=== PATIENT | male | born 1955 | race Caucasian/White ===

== ENCOUNTER 2023-08-17 09:24 | Outpatient (RCR) | payer MEDICARE, SELFPAY | END 2023-08-17 23:59 | disposition home or self-care (01) | LOC: RPT 09:24 | PROVIDERS: ATTENDING PHYSICIAN Neurological Surgery; FAMILY PHYSICIAN Family Medicine | DX: M48.062 Spinal stenosis, lumbar region with neurogenic claudication (principal); M54.50 Low back pain, unspecified; Z73.6 Limitation of activities due to disability | CPT/HCPCS: 97110; 97163 ==

== ENCOUNTER 2023-09-05 11:54 | Outpatient (RCR) | payer MEDICARE, SELFPAY | END 2023-09-05 23:59 | disposition home or self-care (01) | LOC: RPT 11:54 | PROVIDERS: ATTENDING PHYSICIAN Neurological Surgery; FAMILY PHYSICIAN Family Medicine | DX: M48.062 Spinal stenosis, lumbar region with neurogenic claudication (principal); M54.50 Low back pain, unspecified; Z73.6 Limitation of activities due to disability | CPT/HCPCS: 97010; 97110; 97140; 97530 ==

== ENCOUNTER → 2023-09-07 11:01 | Outpatient (REF) | payer MEDICARE, SELFPAY | LOC: RAD 11:01 | PROVIDERS: ATTENDING PHYSICIAN Neurological Surgery; FAMILY PHYSICIAN Family Medicine | DX: M48.062 Spinal stenosis, lumbar region with neurogenic claudication (principal) | CPT/HCPCS: 72100 ==

== ENCOUNTER → 2023-09-27 12:21 | Outpatient (REF) | payer MEDICARE, SELFPAY | LOC: PAVMRI 12:21 | PROVIDERS: ATTENDING PHYSICIAN Neurological Surgery; FAMILY PHYSICIAN Family Medicine | DX: M48.062 Spinal stenosis, lumbar region with neurogenic claudication (principal) | CPT/HCPCS: 72158; A9575 ==

== ENCOUNTER 2023-10-03 14:28 | Outpatient (RCR) | payer MEDICARE, SELFPAY | END 2023-10-03 23:59 | disposition home or self-care (01) | LOC: RPT 14:28 | PROVIDERS: ATTENDING PHYSICIAN Neurological Surgery; FAMILY PHYSICIAN Family Medicine | DX: M48.062 Spinal stenosis, lumbar region with neurogenic claudication (principal); M54.50 Low back pain, unspecified; Z73.6 Limitation of activities due to disability | CPT/HCPCS: 97110 ==

== ENCOUNTER → 2023-10-23 07:32 | Outpatient (REF) | payer MEDICARE, SELFPAY | LOC: EMG 07:32 | PROVIDERS: ATTENDING PHYSICIAN Neurological Surgery; FAMILY PHYSICIAN Family Medicine | DX: G90.09 Other idiopathic peripheral autonomic neuropathy (principal); M54.16 Radiculopathy, lumbar region; R20.0 Anesthesia of skin | CPT/HCPCS: 95886; 95911 ==

== ENCOUNTER → 2023-11-06 12:40 | Outpatient (REF) | payer MEDICARE, SELFPAY | LOC: HWRAD 12:40 | PROVIDERS: ATTENDING PHYSICIAN Family Medicine | DX: I25.10 Atherosclerotic heart disease of native coronary artery without angina pectoris (principal); I25.84 Coronary atherosclerosis due to calcified coronary lesion; Z87.891 Personal history of nicotine dependence; Z13.6 Encounter for screening for cardiovascular disorders | CPT/HCPCS: 75571; 76770 ==

== ENCOUNTER → 2024-09-19 10:52 | Outpatient (REF) | payer MEDICARE, SELFPAY | LOC: HWRCS 10:52 | PROVIDERS: ATTENDING PHYSICIAN Internal Medicine Cardiovascular Disease; FAMILY PHYSICIAN Family Medicine | DX: Z86.79 Personal history of other diseases of the circulatory system (principal); E78.00 Pure hypercholesterolemia, unspecified; R06.02 Shortness of breath | CPT/HCPCS: 78452; 93017; A9500; J2785 ==

== ENCOUNTER 2025-01-01 12:43 | Emergency (ER) | payer MEDICARE, SELFPAY ==
[2025-01-01] VITALS (7 sets, daily range): BP systolic 117–141; BP diastolic 79–110
[2025-01-01] MEDS: OMNIPAQUE 50 ML PO (13:03)
[2025-01-01 13:53] LABS: Hematocrit 47.0 % (39.0-52.0); Hemoglobin 16.5 g/dL (13.0-18.0); Mean Corp Hgb Conc. 35.1 g/dL (33.0-37.0); Mean Corpuscular Volume 88.0 fL (80.0-94.0); Nucleated Red Blood Cells % 0 % (-); Platelet Count 355 10^3/uL (130-400); Red Cell Dist. Width 12.7 % (11.5-14.5)
[2025-01-01 14:04] LABS: ALT (SGPT) 23 U/L (0-50); AST (SGOT) 25 U/L (17-59); Albumin 4.9 g/dl (3.5-5.0); Alkaline Phosphatase 69 U/L (38-126); Blood Urea Nitrogen 14 mg/dl (9-20); Calcium 10.4 mg/dl (8.4-10.2); Carbon Dioxide 24 mmol/L (22-30); Chloride 104 mmol/L (98-107); Glucose 78 mg/dl (70-99); Potassium 4.6 mmol/L (3.5-5.1); Sodium 136 mmol/L (135-145); Total Protein 7.8 g/dl (6.3-8.2); eGFR > 60.00
--- NOTE | 2025-01-01 15:14 | ED.GENMED ---
History of Present Illness
General
Chief Complaint: Abdominal Symptoms
Source: patient
Exam Limitations: none
Time Seen by Provider: 01/01/25 14:41
History of Present Illness
History of Present Illness:
Patient is a 69-year-old male with past medical history of hyperlipidemia, diabetes, diverticulosis on colonoscopy in the past who presents to the emergency department from his doctor's office for evaluation of 2 days of persistent left lower
abdominal pain. Patient reports that he initially thought it was a kidney stone although he has never had a kidney stone before. He reports that he drink plenty of water but without significant improvement in his pain. Patient denies nausea or
vomiting. Patient denies any diarrhea or constipation. Patient denies any blood in his stool. Patient denies any dysuria, hematuria, urinary urgency, urinary frequency. Patient denies recent fevers, chills, chest pain, shortness of breath.
Patient reports he has been taking aspirin at home but without significant improvement in his pain. Patient denies he never had pain like this in the past. Patient's primary care provider tried to get an outpatient CT scan performed stat but it
could not get done so he was referred to the emergency department.
Past History
Past History
ED Past Medical History: Hypercholesterolemia (Repatha injection q 2 weeks) and Other (Diverticulosis)
ED Past Surgical History: Other (Bilateral inguinal hernia repair, umbilical hernia repair 04/30/2015)
Social History
Tobacco: Former smoker (quit one yeara ago)
Alcohol: None
Personal:
Living: with family
Employment: Retired
Family History
Family History: Other (brother with diverticulitis)
Review of Systems
Review of Systems
All Other Systems: Not applicable
Constitutional: Reports no symptoms
EENT: Reports no symptoms
Respiratory: Reports no symptoms
Cardiac: Reports no symptoms
ABD/GI: Reports abdominal pain; Denies nausea, vomiting, diarrhea, constipated or bloody stools
: Reports no symptoms
Musculoskeletal: Reports no symptoms
Skin: Reports no symptoms
Neurological: Reports no symptoms
Endocrine: Reports no symptoms
Hematologic/Lymphatic: Reports no symptoms
Psychiatric: Reports no symptoms
Phy Exam
General Physical Exam
General Presentation: well appearing and no apparent distress
General Skin: warm and dry
General Habitus: normal
General Mental: alert
General Hydration: appears well hydrated
ENT Exam
ENT Exam: EOMI, pharynx normal, neck supple and normocephalic
Eye Exam
Eye Exam: PERRL, cornea clear and conjunctiva normal
Cardiovascular Exam
Cardiovascular Exam: regular rate/rhythm, no edema, no murmur and normal peripheral pulses
Pulmonary Exam
Pulmonary Exam: lungs clear, no respiratory distress, no rales, no crackles, no rhonchi, no stridor, no wheezing and no cough
Gastrointestinal Exam
Gastrointestinal Exam: normal bowel sounds, soft, no organomegaly, no pulsatile mass and non distended
Palpation: left lower quadrant: Moderate tenderness
Neurological Exam
Neurological Exam: alert, oriented x3, no motor deficits and speech normal
Musculoskeletal Exam
Musculoskeletal Exam: full ROM and no edema
Skin Exam
Skin Exam: normal color, warm/dry, no rash and no petechia
Psychiatric Exam
Psychiatric Exam: normal mood/affect
Course
Orders/Labs/Results
Orders:
Orders
01/01/25 12:57
Iohexol [Omnipaque] See Protocol PO NOW STA
01/01/25 13:01
CMP [Comprehensive Metabolic Panel] Urgent
Complete Blood Count/With Diff Urgent
01/01/25 15:13
Iohexol [Omnipaque] See Protocol PO NOW STA
01/01/25 15:14
CT Abd/pel W Iv And Oral Contr Urgent
Comment:
Reason For Exam: LLQ pain x 2 days, hx of diverticulosis
Abnormal Lab Results
01/01/25
13:01
Absolute Monos (auto) 1.1 H 10^3/uL
(0.1-0.6)
Monocytes % 12.5 H %
(1.7-9.3)
Calcium 10.4 H mg/dl
(8.4-10.2)
01/01/25 13:01
01/01/25 13:01
Vital Signs
Initial and Last Documented VS:
Initial Vital Signs
Temp Pulse Resp BP Pulse Ox
98.1 F 82 16 140/82 97
01/01/25 12:45 01/01/25 12:45 01/01/25 12:45 01/01/25 12:45 01/01/25 12:45
Last Documented Vital Signs
Temp Pulse Resp BP Pulse Ox
98.3 F 76 18 141/107 96
01/01/25 18:01 01/01/25 18:01 01/01/25 18:01 01/01/25 18:01 01/01/25 18:01
*Pulse Oximetry
SaO2: 97
Oxygen Mode of Delivery: Room air
Patient hypoxic: no
*Critical Care Note
Total Time (30-74mins, 75-104mins- exclusive of procedures): Not Applicable
Update Note
Update Note:
69-year-old male presents to the emergency department for evaluation of 2 days of persistent left lower abdominal pain. Patient denies any associated nausea, vomiting, change in his bowel habits, urinary symptoms. On arrival, patient is mildly
hypertensive, afebrile. On exam, patient is well-appearing, he is in no acute distress, he does have left lower quadrant tenderness without rebound or guarding, he has no flank tenderness. Labs were performed while the patient was in the waiting
room and demonstrate no leukocytosis or left shift, no electrolyte derangement. Will obtain CT of the abdomen and pelvis to evaluate further. Patient declines need for analgesia or antiemetics at this time.
CT demonstrates mild acute epiploic appendagitis. Acute diverticulitis is felt to be less likely. Given the fact that patient has no leukocytosis, no nausea, vomiting, diarrhea, I agree that diverticulitis is less likely. Will treat for epiploic
appendagitis with anti-inflammatories and supportive care measures. Patient will follow-up closely with his PCP to ensure resolution of his symptoms. Patient was also educated on return precautions. He expressed understanding of the plan and
agreed.
ED Attending Note
-
Portions of this chart may have been created with voice recognition software.� Occasional wrong word or��sound alike� substitutions may have occurred due to the inherent limitations of voice recognition software.
Discharge Plan
Departure
Patient Disposition: Home (Routine Discharge)
Date of Disposition: 01/01/25
Time of Disposition: 19:49
Patient with high blood pressure during this ER visit?: Yes
Condition: Good
Covid-19: Not Applicable
Discharge Problem:
Epiploic appendagitis
Instructions: Abdominal Pain
Prescriptions:
No Action
aspirin 81 MG tablet,delayed release (DR/EC)
81 mg PO .ONCE
Patient Comments:
PATIENT STATED HE TOOK ONE BABY ASPIRIN FOR CHEST PAIN LAST NITE 10/07/09
simvastatin 40 MG tablet
40 mg PO QPM
omega [id number]-[id number]-fish oil 1,000 MG capsule
1,000 mg PO DAILY
multivitamin with folic acid [Tab-A-Sierra] 1 TABLET tablet
1 tab PO DAILY
cyclobenzaprine 10 MG tablet
10 mg PO TIDPRN PRN (Reason: back pain/spasms) Qty: 30 0RF
prednisone 10 MG tablet
10 mg PO .TAPER Qty: 30 0RF
Rx Instructions:
Take 40mg daily x3days, 30mg daily x3days,
20mg daily x3days, 10mg daily x3days.
Referrals:
Thom Prince DO [Family Provider, Family Practice] - Follow up in 2-3 days
Activity Restrictions/Additional Instructions:
You were seen in the emergency department for evaluation of left lower abdominal pain and concern for possible diverticulitis. While you were in the emergency department your blood work did not show any dangerous abnormalities. You had a CT scan
of your abdomen and pelvis which demonstrates evidence of epiploic appendagitis. This is typically not a dangerous cause of abdominal pain and will go away on its own. We do recommend that you take ibuprofen 600 mg every 6-8 hours for the next 3
to 4 days to help decrease inflammation and help with your pain. You should follow-up with your primary care provider to ensure resolution of your symptoms. Please return to the emergency department if you develop increasing or worsening abdominal
pain, persistent vomiting, diarrhea, blood in your stool, fever greater than 100.4 �F, or for any other worsening or concerning symptoms.
Interventions
Interventions:
*Risk Screen - Suicide Last Done: 01/01/25 12:45
*Neglect/Abuse Screening Last Done: 01/01/25 12:45
OE-Hmvsvm-Tiznhwxnsf Assessment Last Done: 01/01/25 15:19
Discharge Date and Time
Print Language: [id number]
== END 2025-01-01 20:13 | disposition home or self-care (01) ==
LOC: EMR 12:43
PROVIDERS: Student in an Organized Health Care Education/Training Program; EMERGENCY PHYSICIAN Emergency Medicine; FAMILY PHYSICIAN Family Medicine
DX: K63.89 Other specified diseases of intestine (principal); E78.00 Pure hypercholesterolemia, unspecified; E11.9 Type 2 diabetes mellitus without complications; Z83.79 Family history of other diseases of the digestive system; Z87.891 Personal history of nicotine dependence
CPT/HCPCS: 99284; 74177; 80053; 85025; Q9967